=== PATIENT | male | born 1960 ===

== ENCOUNTER 2022-11-14 15:55 | Emergency (ER) | payer OTHER ==
[2022-11-14 16:40] LABS: Absolute Lymphocytes (CBC) 1.9 K/uL (0.7-4.9); Hematocrit 58.9 % (39.6-49.0); Lymphocytes % 27.2 % (15.3-44.8); MCV 97.3 fL (80-100); MPV 8.1 fL (7.6-11.3); RBC Red Blood Cell Count 6.05 M/uL (4.33-5.43)
[2022-11-14 16:43] LABS: Protime INR 0.98
[2022-11-14 16:57] LABS: Magnesium 2.4 mg/dL (1.6-2.4); Potassium 3.8 mEq/L (3.5-5.1); Troponin High Sensitivity 17.1 pg/mL (<58.9)
[2022-11-14] MEDS ORDERED: NA CHLORIDE 0.9% 1,000 ML ONE (17:29)
[2022-11-14] MEDS ORDERED: lisinopriL 20 MG TAB ONE (17:29)
--- NOTE | 2022-11-14 18:03 | RAD REPORT ---
EXAM DESCRIPTION: Leigh Single View11/14/2022 5:33 pm CLINICAL HISTORY: Hypertension COMPARISON: none FINDINGS: The lungs appear clear of acute infiltrate. The heart is probably mildly enlarged. Aorta appears tortuous IMPRESSION: No acute abnormalities displayed
--- NOTE | 2022-11-14 18:22 | EDPHYS ---
Physician Documentation [facility] Name: Keanu Powers Age: 62 yrs Sex: Male : 1960 Arrival Date: 11/14/2022 Time: 15:55 Bed 14 Private MD: ED Physician Brian Jose HPI: 11/14 16:20 This 62 yrs old Male presents to ER via Ambulatory with complaints of Blood Pressure cp Problem, Dizziness, Shortness Of Breath. 16:20 The patient has elevated blood pressure and discovered this during work physical. cp Onset: The symptoms/episode began/occurred today. 16:20 Associated signs and symptoms: Pertinent negatives: chest pain, dizziness, headache, cp vomiting, weakness. Severity of symptoms: in the emergency department the blood pressure is improved, mildly, 178 mm Hg. Patient reports blood pressure readings being elevated while having employment physical today. Patient reports HTN in the past but has not taken medications for many years. Historical: - Allergies: 18:38 No Known Allergies; ko1 - Home Meds: 18:38 None [Active]; ko1 - PMHx: 17:00 Hypertensive disorder; ko1 - Immunization history:: Adult Immunizations up to date. - Social history:: Smoking status: Patient denies any tobacco usage or history of. ROS: 16:25 Constitutional: Negative for body aches, chills, fever, poor PO intake. cp 16:25 Eyes: Negative for injury, pain, redness, and discharge. cp 16:25 ENT: Negative for drainage from ear(s), ear pain, sore throat, difficulty swallowing, difficulty handling secretions. 16:25 Cardiovascular: Negative for chest pain, edema, palpitations. 16:25 Respiratory: Negative for cough, shortness of breath, wheezing. 16:25 Abdomen/GI: Negative for abdominal pain, vomiting, diarrhea, constipation. 16:25 Neuro: Negative for altered mental status, dizziness, headache, numbness, syncope, weakness. 16:25 All other systems are negative. Exam: 16:20 ECG was reviewed by the Attending Physician. cp 16:28 Constitutional: The patient appears in no acute distress, alert, awake, comfortable, cp non-diaphoretic, non-toxic, well developed, well nourished. 16:28 Head/Face: Normocephalic, atraumatic. cp 16:28 Eyes: Periorbital structures: appear normal, Pupils: equal, round, and reactive to light and accomodation, Extraocular movements: intact throughout, Conjunctiva: normal, no exudate, no injection, Sclera: no appreciated abnormality, Lids and lashes: appear normal, bilaterally. 16:28 ENT: External ear(s): are unremarkable, Nose: is normal, Mouth: Lips: moist, Oral mucosa: pink and intact, moist, Posterior pharynx: is normal, airway is patent, no erythema, no exudate. 16:28 Neck: ROM/movement: is normal, is supple, without pain, no range of motions limitations. 16:28 Chest/axilla: Inspection: normal. 16:28 Cardiovascular: Rate: normal, Rhythm: regular, Edema: is not appreciated, JVD: is not appreciated. 16:28 Respiratory: the patient does not display signs of respiratory distress, Respirations: normal, no use of accessory muscles, no retractions, labored breathing, is not present, Breath sounds: are clear throughout, no decreased breath sounds, no stridor, no wheezing. 16:28 Abdomen/GI: Inspection: abdomen appears normal, Palpation: abdomen is soft and non-tender, in all quadrants. 16:28 Back: pain, is absent, ROM is normal. 16:28 Neuro: Orientation: to person, place \T\ time. Mentation: is normal, Cerebellar function: is grossly normal, Motor: moves all fours, strength is normal, Sensation: is normal. Vital Signs: 16:21 BP 178 / 115; Pulse 93; Resp 18; Temp 98(O); Pulse Ox 95% on R/A; ko1 16:30 BP 147 / 115; Pulse 85; Resp 16; Pulse Ox 96% ; ko1 16:45 BP 148 / 117; Pulse 92; Resp 16; Pulse Ox 94% ; ko1 17:00 BP 154 / 116; Pulse 90; Resp 18; Pulse Ox 96% ; ko1 18:15 BP 150 / 119; Pulse 81; Resp 18; Pulse Ox 99% ; ko1 MDM: 16:07 Patient medically screened. cp 17:00 Differential diagnosis: hypertensive crisis, Malignant HTN, CVA, intracerebral cp hemorrhage, acute [place]. 18:22 Data reviewed: vital signs, nurses notes, lab test result(s), EKG, radiologic studies, cp plain films. 18:22 Consideration of Admission/Observation Escalation of care including cp admission/observation considered. I considered the following discharge prescriptions or medication management in the emergency department Medications were administered in the Emergency Department. See MAR. Independent interpretation of the following test(s) in the Emergency Department EKG: See my EKG interpretation above. Counseling: I had a detailed discussion with the patient and/or guardian regarding: the historical points, exam findings, and any diagnostic results supporting the discharge/admit diagnosis, lab results, radiology results, the need for outpatient follow up, a family practitioner, to return to the emergency department if symptoms worsen or persist or if there are any questions or concerns that arise at home. Response to treatment: the patient's symptoms have mildly improved after treatment, and as a result, I will discharge patient. 11/14 16:38 Order name: Basic Metabolic Panel; Complete Time: 17:08 EDNJ 11/14 18:08 Interpretation: Normal except: NA 131; CRE 1.44; GFR 56. 11/14 16:38 Order name: Troponin High Sensitivity; Complete Time: 17:08 EDNJ 11/14 16:38 Order name: NT PRO-BNP; Complete Time: 17:08 EDNJ 11/14 16:38 Order name: Magnesium; Complete Time: 17:08 EDNJ 11/14 16:38 Order name: CBC with Automated Diff; Complete Time: 17:08 EDNJ 11/14 18:08 Interpretation: Normal except: RBC 6.05; HGB 20.3; HCT 58.9; MN% 12.4. 11/14 16:38 Order name: Protime (+INR); Complete Time: 17:08 EDNJ 11/14 16:08 Order name: XRAY Chest (1 view); Complete Time: 18:07 11/14 18:07 Interpretation: Report review. 11/14 16:08 Order name: EKG; Complete Time: 16:55 11/14 16:08 Order name: Cardiac monitoring; Complete Time: 16:17 11/14 16:08 Order name: EKG - Nurse/Tech; Complete Time: 16:22 11/14 16:08 Order name: IV Saline Lock; Complete Time: 16:30 11/14 16:08 Order name: Labs collected and sent; Complete Time: 16:30 11/14 16:08 Order name: O2 Per Protocol; Complete Time: 16:17 cp 11/14 16:08 Order name: O2 Sat Monitoring; Complete Time: 16:17 cp EC:20 Rate is 93 beats/min. Rhythm is regular. [place] interval is normal. QRS interval is normal. cp QT interval is normal. T waves are Inverted in lead aVR. Interpreted by me. Reviewed by me. Administered Medications: 17:25 Drug: NS 0.9% IV 1000 ml Route: IV; Rate: 1 bolus; Site: left antecubital; ko1 17:25 Not Given (Physician Discretion): hydrALAZINE IVP 10 mg IVP once; if systolic pressure cp above 180 17:25 Drug: Lisinopril PO 20 mg Route: PO; ko1 18:26 Drug: Aspirin PO Chewable Tablet 81 mg Route: PO; ko1 Disposition Summary: 11/14/22 18:22 Discharge Ordered Location: Home cp Problem: an ongoing problem cp Symptoms: have improved cp Condition: Stable cp Diagnosis - Hypertensive heart disease without heart failure cp Followup: cp - With: Private Physician - When: 2 - 3 days - Reason: Recheck today's complaints Discharge Instructions: - Discharge Summary Sheet cp - Hypertension, Adult cp - Aspirin and Your Heart cp - Form - Blood Pressure Record Sheet cp - How to Take Your Blood Pressure cp Forms: - Medication Reconciliation Form cp - Thank You Letter cp - Antibiotic Education cp - Prescription Opioid Use cp Prescriptions: - Lisinopril 20 mg Oral Tablet - take 1 tablet by ORAL route once daily; 20 tablet; Refills: 0, Product cp Selection Permitted Addendum: 11/17/2022 12:57 Co-signature as Attending Physician, Brian Jose DO I was immediately available on-site m s3 in the Emergency Department for consultation in the care of the patient. Signatures: Dispatcher [employer] EDMS David Fields PA PA cp Brian Jose DO DO ms3 Deandra Braden RN RN ko1 Corrections: (The following items were deleted from the chart) 11/14 17:00 16:54 CBC+H.LAB.BRZ ordered. EDMS EDMS 17:00 16:54 PROTIME (+INR)+COAG.LAB.BRZ ordered. EDMS EDMS 17:03 16:48 Chest Single View ordered. EDMS EDMS
--- NOTE | 2022-11-14 18:22 | ER ---
Nurse's Notes [facility] Name: Keanu Powers Age: 62 yrs Sex: Male : 1960 Arrival Date: 11/14/2022 Time: 15:55 Bed 14 Private MD: Diagnosis: Hypertensive heart disease without heart failure Presentation: 11/14 16:00 Chief complaint: Patient states: he has been dizzy and his blood pressure has been up, ko1 he is also seeing some spots. Coronavirus screen: At this time, the client does not indicate any symptoms associated with coronavirus-19. Ebola Screen: No symptoms or risks identified at this time. Initial Sepsis Screen: Does the patient meet any 2 criteria? No. Patient's initial sepsis screen is negative. Does the patient have a suspected source of infection? No. Patient's initial sepsis screen is negative. Risk Assessment: Do you want to hurt yourself or someone else? Patient reports no desire to harm self or others. Onset of symptoms was November 14, 2022. 16:00 Method Of Arrival: Ambulatory ko1 16:00 Acuity: BRENDEN 3 ko1 Triage Assessment: 17:00 General: Appears in no apparent distress. comfortable, Behavior is calm, cooperative, ko1 appropriate for age. Pain: Denies pain. Respiratory: Reports shortness of breath Onset: The symptoms/episode began/occurred this morning, the patient has mild shortness of breath. GI: No deficits noted. : No deficits noted. Derm: No deficits noted. Musculoskeletal: No deficits noted. Historical: - Allergies: 18:38 No Known Allergies; ko1 - Home Meds: 18:38 None [Active]; ko1 - PMHx: 17:00 Hypertensive disorder; ko1 - Immunization history:: Adult Immunizations up to date. - Social history:: Smoking status: Patient denies any tobacco usage or history of. Screenin:00 [facility] ED Fall Risk Assessment (Adult) History of falling in the last 3 months, ko1 including since admission No falls in past 3 months (0 pts) Confusion or Disorientation No (0 pts) Intoxicated or Sedated No (0 pts) Impaired Gait No (0 pts) Mobility Assist Device Used No (0 pt) Altered Elimination No (0 pt) Score/Fall Risk Level 0 - 2 = Low Risk Oriented to surroundings, Maintained a safe environment, Educated pt \T\ family on fall prevention, incl call for assistance when getting out of bed, Assessed \T\ reinforced patient's understanding of fall precautions, Provided non-skid footwear, Hourly rounding (assess needs \T\ fall precautionary measures) done, Used ambulatory aids as needed (educated on \T\ assisted with), Used gait belt as appropriate. Abuse screen: Denies threats or abuse. Denies injuries from another. Nutritional screening: No deficits noted. Tuberculosis screening: No symptoms or risk factors identified. Assessment: 17:00 Cardiovascular: Rhythm is regular. Respiratory: Airway is patent Respiratory effort is ko1 even, unlabored, Breath sounds are clear. Vital Signs: 16:21 BP 178 / 115; Pulse 93; Resp 18; Temp 98(O); Pulse Ox 95% on R/A; ko1 16:30 BP 147 / 115; Pulse 85; Resp 16; Pulse Ox 96% ; ko1 16:45 BP 148 / 117; Pulse 92; Resp 16; Pulse Ox 94% ; ko1 17:00 BP 154 / 116; Pulse 90; Resp 18; Pulse Ox 96% ; ko1 18:15 BP 150 / 119; Pulse 81; Resp 18; Pulse Ox 99% ; ko1 ED Course: 15:57 Patient arrived in ED. ts1 15:58 David Fields PA is PHCP. cp 16:07 Brian Jose DO is Attending Physician. cp 16:17 Deandra Braden, RONNIE is Primary Nurse. ko1 16:21 EKG done, by ED staff. aw1 16:25 Inserted saline lock: 20 gauge in left antecubital area, using aseptic technique. Blood ko1 collected. 16:25 Patient maintains SpO2 saturation greater than 95% on room air. ko1 17:00 No provider procedures requiring assistance completed. ko1 17:00 Patient has correct armband on for positive identification. Bed in low position. Call ko1 light in reach. Side rails up X2. Client placed on continuous cardiac and pulse oximetry monitoring. NIBP monitoring applied. pvc monitor on. Door closed. Noise minimized. Lights dimmed. Warm blanket given. 17:00 Patient placed in an exam room, on a stretcher, on desk monitor, on pulse oximetry, ko1 Patient notified of wait time. 17:35 XRAY Chest (1 view) In Process Unspecified. EDMS 18:38 Triage completed. ko1 18:40 IV discontinued, intact, bleeding controlled, No redness/swelling at site. Pressure ko1 dressing applied. Administered Medications: 17:25 Drug: NS 0.9% IV 1000 ml Route: IV; Rate: 1 bolus; Site: left antecubital; ko1 17:25 Not Given (Physician Discretion): hydrALAZINE IVP 10 mg IVP once; if systolic pressure cp above 180 17:25 Drug: Lisinopril PO 20 mg Route: PO; ko1 18:26 Drug: Aspirin PO Chewable Tablet 81 mg Route: PO; ko1 Medication: 17:00 VIS not applicable for this client. ko1 Outcome: 18:22 Discharge ordered by MD. cp 18:40 Discharged to home ambulatory. ko1 18:40 Condition: stable 18:40 Discharge instructions given to patient, Instructed on discharge instructions, follow up and referral plans. medication usage, Demonstrated understanding of instructions, follow-up care, medications, Prescriptions given X 1. 18:41 Patient left the ED. ko1 Signatures: Dispatcher [employer] EDOK David Fields PA PA cp Deandra Braden, RN RN ko1 Jael Putnam PAS PAS ts1 Rosenda Tse aw1 Corrections: (The following items were deleted from the chart) 18:38 16:00 Acuity: BRENDEN 2 ko1 ko1
[2022-11-14] MEDS ORDERED: ASPIRIN 81 MG CHEWABLE TABLET ONE (18:34)
--- NOTE | 2022-11-17 12:10 | EKG ---
Test Date: 2022-11-14 Test Time: 16:13:08 Advertising Display Rotator: Zenon HANCOCK MEASUREMENT RESULTS: Intervals: Rate: 90 WV: 168 QRSD: 80 QT: 338 QTc: 413 [place]: P: 51 WV: 168 QRS: 29 T: 47 INTERPRETIVE STATEMENTS: Normal sinus rhythm Normal ECG No previous ECG available for comparison Electronically Signed On 11-17-22 12:01:30 CDT by Hernandez Hong
--- NOTE | 2022-11-17 12:10 | EKG ---
Test Date: 2022-11-14 Test Time: 16:13:49 Worm Farmer: Zenon HANCOCK MEASUREMENT RESULTS: Intervals: Rate: 93 CT: 170 QRSD: 82 QT: 340 QTc: 422 [place]: P: 47 CT: 170 QRS: 31 T: 47 INTERPRETIVE STATEMENTS: Normal sinus rhythm Normal ECG Compared to ECG 11/14/2022 16:13:08 No significant changes Electronically Signed On 11-17-22 12:01:29 CDT by Hernandez Hong
== END 2022-11-14 18:41 | disposition home or self-care (01) ==
LOC: ER 15:55
DX: I11.9 Hypertensive heart disease without heart failure (principal); I10 Essential (primary) hypertension
CPT/HCPCS: 93005 ×2; 85025; 80048; 36415; 83735; 85610; 84484; 83880; 71045; 99285; J7030